=== PATIENT | female | born 1950 | race Caucasian/White ===

== ENCOUNTER → 2019-04-18 12:43 | Outpatient (CLI) | payer MEDICARE, SELFPAY ==
--- NOTE | 2019-04-18 | PATH_ITS ---
Note [facility] Accession Number: [id number] TESTS RESULT FLAG UNITS REF RANGE LAB Clinician Provided Cytology Information No. of containers..01 Other (Miscellaneous) 01 RT PLEURAL FLUID DIAGNOSIS: 02 RT PLEURAL FLUID NEGATIVE FOR MALIGNANT CELLS. MESOTHELIAL CELLS ARE PRESENT. Pathologist ICD10: 02 J90 02 Katrina Noyola MD, Pathologist NPI- [id number] Palomo Seaman, Durability Engineer ([facility]) 01 60 CC, YELLOW, CLEAR /LCS 05/23/1840 0000 Local FLAG LEGEND: L-Low Normal,H-High Normal,LL-Alert Low,HH-Alert High <-Panic Low,>-Panic High,A-Abnormal,AA-Critical Abnormal Performed at: 01 =Z [facility] [address], [place] [address] Anuj Aponte MD, 02 LWA [facility] [address] [place] [id number] Deja Wallace MD, Performed at: 01 [facility] [address], [place], [place] [id number] MD Anuj Aponte MD Phone: [phone]
--- NOTE | 2019-04-18 | DI.RAD.S_ITS ---
PROCEDURE: XR CHEST 1V INDICATIONS: post thoracentisis TECHNIQUE: One view of the chest was acquired. COMPARISON: [facility], THORACENTESIS, 04/18/2019, 13:23. FINDINGS: Surgical changes and devices: None. Lungs and pleura: Lungs are clear. No pleural effusions or pneumothorax. Mediastinum: Mediastinal contours appear normal. Heart size is normal. Bones and chest wall: No suspicious bony lesions. Overlying soft tissues appear unremarkable. IMPRESSION: No acute consolidation Trace blunting of the right costophrenic angle in keeping with mild residual effusion. No pneumothorax status post right thoracentesis Dictated by: Andrea Olivera M.D. on 04/18/2019 at 14:01 Approved by: Andrea Olivera M.D. on 04/18/2019 at 14:03
--- NOTE | 2019-04-18 | DI.US.S_ITS ---
PROCEDURE: US THORACENTESIS INDICATIONS: Pleural effusion, not elsewhere classified TECHNIQUE: The indications, alternatives, benefits, risks, and complications of the procedure were explained to the patient. Written informed consent was obtained and placed in the chart. The chest was examined sonographically, and an appropriate site was chosen for thoracentesis. The skin was prepared and draped in the usual sterile fashion, and 1% lidocaine was infiltrated from the skin down through the pleural surface. A 19-gauge catheter-covered needle was then introduced into the pleural space, the catheter was advanced and the needle was withdrawn, and thereafter pleural fluid was aspirated. The catheter was then removed and a dressing was applied. COMPARISON: None. FINDINGS: Access site: Right hemithorax. Needle: One-Step centesis catheter with introducer needle. Fluid volume and description: 1300 cc of serous fluid was obtained Fluid sent for diagnostic testing: As requested Medications: 1% lidocaine for local anaesthesia. Complications: None; post-procedural chest radiograph is pending to assess for pneumothorax. IMPRESSION: Successful ultrasound-guided thoracentesis. Dictated by: Andrea Olivera M.D. on 04/18/2019 at 14:21 Approved by: Andrea Olivera M.D. on 04/18/2019 at 14:22
== END ==
PROVIDERS: PCP Family Medicine; Visit Provider Family Medicine
DX: J90 Pleural effusion, not elsewhere classified (principal)
CPT/HCPCS: 32555; 71045

== ENCOUNTER → 2024-11-08 14:16 | Outpatient (CLI) | payer MEDICARE, SELFPAY ==
--- NOTE | 2024-11-08 | PATH_ITS ---
Note [facility] Accession Number: [id number] TESTS RESULT FLAG UNITS REF RANGE LAB Clinician Provided Cytology Information No. of containers..01 Other (Miscellaneous) No. of containers..02 Previously Prepared Cytology Slide Source: [A] 01 LEFT THYROID NODULE DIAGNOSIS: [A] 01 LEFT THYROID NODULE SUSPICIOUS FOR MALIGNANCY. [place] CATEGORY V. SUSPICIOUS FOR PAPILLARY CARCINOMA. SPECIMEN CONSISTS OF FOLLICULAR CELLS WITH NUCLEAR OVERLAP AND NUCLEAR PALLOR WITH MARGINATED CHROMATIN. INTRANUCLEAR PSEUDOINCLUSIONS ARE RARE. THIS PATTERN IS SUSPICIOUS FOR PAPILLARY CARCINOMA. COMMENT: These slides were also reviewed by Dr. Laila Rodrigues (Julie), who agrees with the interpretation. Pathologist ICD10: 01 R89.6 Signed out by: Katrina Noyola MD, Pathologist NPI- [id number] Performed by: Armin Thomson, Stripper [employer] ([facility]) Gross description: 30 CC, PINK, CLEAR RECIEVED: IN CYTOLYT WITH 6 ALCOHOL FIXED AND 6 QUICK STAINED SLIDES ALSO 1 RNA VIAL WILL ON 01-16-2029.VO /VDU 11/09/2024 [facility] Local FLAG LEGEND: L-Low Normal,H-High Normal,LL-Alert Low,HH-Alert High <-Panic Low,>-Panic High,A-Abnormal,AA-Critical Abnormal Performed at: 01 =Z [facility] [address], [place] [address] Anuj Aponte MD, Performed at: 01 [facility] [address] [address] [address] [facility], [place], [place] [id number] MD Anuj Aponte MD Phone: [phone]
--- NOTE | 2024-11-08 14:24 | DI.US.S_ITS ---
PROCEDURE: US FINE NEEDLE ASPIRATION INDICATIONS: THYROID NODULE TECHNIQUE: The indications, alternatives, benefits, risks, and complications of the procedure were explained to the patient. Written informed consent was obtained and placed in the chart. The thyroid region was examined sonographically and a site was chosen for ultrasound guided percutaneous sampling. The skin was prepared and draped in the usual fashion, and anesthetized with 1% lidocaine infiltrated from the skin down to the thyroid gland. Multiple passes were then performed, with contents emptied into an appropriate pathology specimen container. A bandage was applied to the area of access at completion of the study. COMPARISON: None. FINDINGS: Location(s) of lesion(s) sampled: Large 3.1 cm left thyroid nodule. [place]: 25 gauge hypodermic needles x6. Number of passes: 6 Medications: 1% lidocaine for local anaesthesia. Complications: None. IMPRESSION: Ultrasound-guided thyroid nodule fine needle aspiration, with adequate sample volume with cytology results pending. Please see chart below for management recommendations based on cytology results. Excel System ReportingRecommendationsNon-diagnostic* Repeat US-guided FNA, with on-site cytology evaluation if possible. * Repeated non-diagnostic nodules without high suspicion US features: close observation vs surgical consult. * Consider surgery if nodule has high suspicion US features, grows >20% in 2 dimensions on followup, or patient has clinical risk factors for malignancy. Benign* If nodule has high suspicion US features: repeat US and FNA within 12 months. * If nodule has low to intermediate suspicion US features: repeat US at 12-24 months. If nodule grows (20% increase in at least 2 dimensions, with minimal increase of 2 mm or >50% change in volume), or development of new suspicious US features, then repeat FNA or continue followup. * If nodule has very low suspicion US features: followup US at >24 months. Atypia of undetermined significance, follicular lesion of undetermined significanceRepeat FNA, molecular testing, followup US, or surgical consult.Follicular neoplasm, suspicious for follicular neoplasmSurgical consult; also consider molecular testing. Suspicious for malignancySurgical consult.MalignantSurgical consult. Dictated by: Anuj Reyes M.D. on 11/08/2024 at 16:41 Approved by: Anuj Reyes M.D. on 11/08/2024 at 16:42
== END ==
PROVIDERS: PCP Family Medicine; Visit Provider Radiology Neuroradiology
DX: E04.1 Nontoxic single thyroid nodule (principal)
CPT/HCPCS: 10005